=== PATIENT | female | born 1985 | race Two or more races ===

== ENCOUNTER 2020-09-02 12:30 | Outpatient (REF) | payer OTHER, SELFPAY ==
[2020-09-02 14:17] LABS: SARS COV2 PCR INHOUSE NEGATIVE (Negative)
== END 2020-09-02 12:31 | disposition home or self-care (01) ==
LOC: HO.LAB 12:30
PROVIDERS: PCP Internal Medicine; Visit Provider Internal Medicine
DX: Z20.822 Contact with and (suspected) exposure to COVID-19 (principal)
CPT/HCPCS: C9803; U0003

== ENCOUNTER 2020-09-18 14:28 | Outpatient (REF) | payer OTHER, SELFPAY | END 2020-09-18 14:29 | disposition home or self-care (01) | LOC: HO.LAB 14:28 | PROVIDERS: Visit Provider Internal Medicine | DX: Z20.822 Contact with and (suspected) exposure to COVID-19 (principal) | CPT/HCPCS: C9803; U0003; U0005 ==

== ENCOUNTER 2023-01-17 17:19 | Outpatient (AMB) | payer OTHER, SELFPAY ==
--- NOTE | 2023-01-17 17:21 | MHC.PC.OV ---
Vital Signs 01/17/23 17:23 Height 5 ft 5 in Weight 263 lb BMI 43.8 BP 132/80 Blood Pressure Location Lt brachial Position Sitting Intake Visit Reasons: Annual PE Intake Note: Patient here for a physical exam Ventilation Mechanic Required: No Accompanied by: Child Allergies No Known Allergies Allergy (Verified 01/17/23 17:31) Medication List - Last Reconciled 01/17/23 by Iliana Olivas MD No Known Home Meds Tobacco use date assessed: 01/17/23 Dental Screening Dental Screen Date: 01/17/23 Did you have a dental visit in the last 12 months?: No Did you have a dental problem in the last 6 months where you did not have access to dental care?: No Was dental information given to patient?: Patient has dentist HPI HPI Comments History of Present Illness Details This is a 37-year-old female with morbid obesity that comes for her physical exam. Last Pap smear was about a year ago at [facility]. She is morbidly obese with a BMI of 43.8 and was advised to diet and exercise to reach BMI goal less than 30. Declines weight loss surgery. Complains of occasional headaches. No chest pain or shortness of breath. [facility] Medical History Morbid obesity with BMI of 40.0-44.9, adult Surgical History History of section Family History Mother Diabetes Hypertension Stroke Father No problems noted. Other Family history unknown Social History Housing: Apartment Alcohol intake: never Patient Tobacco Use Status: Never used Tobacco e-Cigarette/Vaping Use: Never Used Second Hand Smoke Exposure: No service: No Current occupational status: unemployed Cognitive needs: No Hearing needs: No Vision needs: No Questionnaire PHQ-9 Over the last 2 weeks, how often have you been bothered by any of the following problems? 1. Little interest or pleasure in doing things: not at all 2. Feeling down, depressed, or hopeless: not at all 3. Trouble falling or staying asleep, or sleeping too much: not at all 4. Feeling tired or having little energy: not at all 5. Poor appetite or overeating: not at all 6. Feeling bad about yourself - or that you are a failure or have let yourself or your family down: not at all 7. Trouble concentrating on things, such as reading the newspaper or watching television: not at all 8. Moving or speaking so slowly that other people could have noticed. Or the opposite - being so fidgety or restless that you have been moving around a lot more than usual: not at all 9. Thoughts that you would be better off or of hurting yourself in some way: not at all Total score: 0 Depression Screening Interpretation: Negative 53007 - PHQ-9 Billing: Yes Source: Developed by Drs. Redd Pandya, Berna Red, Campos Gomez and colleagues, with an educational sheyla from [employer]. Thrive Questionnaire Date Thrive assessed: 01/17/23 I am a: Patient What is your living situation today?: I have a steady place to live Within the past 12 months, did the food you bought not last and you didn't have the money to get more?: Never true Within the past 12 months, did you worry whether your food would run out before you got money to buy more?: Never true Do you have trouble paying for medicines?: No Do you have trouble getting transportation to medical appointments?: No Do you have trouble paying your heating and electricity bill?: No Do you have trouble taking care of your child, family member or friend?: No Do you have trouble with day-to-day activities such as bathing, preparing meals, shopping, managing finances, etc.?: No Are you currently unemployed and looking for a job?: No Are you interested in more education?: No Please select the resources that you would like help with: None Currently or been in a relationship where the following occur: no concerns reported AUDIT C Alcohol Use Questionnaire (AUDIT-C) 1. How often do you have a drink containing alcohol?: Never Total Score: 0 ОЛЬГА-7 AMB Questionnaire ОЛЬГА-7 Date ОЛЬГА - 7 assessed: 01/17/23 Feeling nervous, anxious, or on edge: 0 = Not at all Not being able to stop or control worryin = Not at all Worrying too much about different things: 0 = Not at all Trouble relaxin = Not at all Being so restless that it is hard to sit still: 0 = Not at all Becoming easily annoyed or irritable: 0 = Not at all Feeling afraid as if something awful might happen: 0 = Not at all Total ОЛЬГА-7 score (0-4 normal; 5-9 mild; 10-14 moderate; 15-21 severe): 0 Source: Developed by Drs. Redd Pandya, Berna Red, Campos Gomez and colleagues, with an educational sheyla from [employer]. ОЛЬГА-7 Assessment Billing ОЛЬГА-7 Assessment Tool: ОЛЬГА-7 Assessment 39218 Review of Systems Const All systems reviewed & are unremarkable except as noted in HPI and below Eyes Reports no additional complaints, Denies change in vision and Denies other visual disturbances Card Denies chest pain at rest, Denies chest pain with activity, Denies edema, Denies irregular heart rhythm, Denies claudication, Denies dyspnea, Denies dyspnea on exertion, Denies orthopnea, Denies paroxysmal nocturnal dyspnea and Denies slow heart rate Resp Denies cough, Denies dyspnea and Denies dyspnea on exertion GI Denies abdominal pain, Denies change in bowel habits, Denies excessive flatus, Denies nausea and Denies vomiting Denies urinary incontinence, Denies urinary hesitancy and Denies urinary urgency Musc Denies abnormal gait, Denies atrophy, Denies deformity and Denies limited range of motion Skin/Breast Denies bleeding lesions, Denies changing lesions and Denies rash Neuro Denies abnormal gait and Denies lack of coordination Physical exam (Primary Care) BMI result Body Mass Index 43.8 Tobacco/Smoking Status: Tobacco use Status Tobacco use date assessed 11/17/20 01/17/23 17:24 Patient Tobacco Use Status Never used Tobacco 01/17/23 17:24 e-Cigarette/Vaping Use Never Used 01/17/23 17:24 PHQ-9: PHQ-9 Score PHQ-9: Total score 0 01/17/23 17:24 Depression Screening Interpretation: Negative Thrive Assessment: Date of Thrive Assessment Date Thrive assessed 01/17/23 01/17/23 17:24 Currently or been in a relationship where the following occur: no concerns reported Const Orientation/consciousness: patient oriented x3 HENMT Head: Yes normal to inspection, Yes normocephalic and Yes atraumatic Ears: external ears normal Eyes General: appearance normal, both eyes and all related structures Eyelids: Yes eyelids normal Conjunctivae: conjunctivae normal Neck Neck: Yes normal visual inspection and Yes supple Resp Effort & Inspection: normal respiratory effort Auscultation: clear to auscultation bilaterally Cardio Jugular venous distension: no JVD Rate: regular rate Rhythm: regular rhythm Heart sounds: S1 normal heart sound present and S2 normal heart sound present GI Inspection: Yes normal to inspection Palpation (GI): Soft to palpation and nontender Auscultation: normal bowel sounds Skin General skin exam: no rashes or lesions noted Neuro General: patient oriented x3 and no focal motor deficits Extrem General: Yes full ROM Psych Appearance: grossly normal Assessment and Plan Assessment & Plan (1) Encounter for physical examination: Code(s): Z00.00 - Encounter for general adult medical examination without abnormal findings Plan: Repeat in a year (2) Morbid obesity with BMI of 40.0-44.9, adult: Code(s): E66.01 - Morbid (severe) obesity due to excess calories; Z68.41 - Body mass index [BMI] 40.0-44.9, adult Plan: Start diet and exercise. BMI goal is less than 30. Coding Level of Care Code Est Pt Prev Care 18-39y(72040) Diagnoses Encounter for physical examination Z00.00 Morbid obesity with BMI of 40.0-44.9, adult E66.01; Z68.41 Additional Codes ОЛЬГА-7 Assessment Billing - ОЛЬГА-7 Assessment Tool: ОЛЬГА-7 Assessment [id number] ([id number]) Time Spent (min) 32
[2023-01-17 17:23] VITALS: BP 132/80; BMI 43.8
== END 2023-01-17 17:41 | disposition home or self-care (01) ==
PROVIDERS: PCP Internal Medicine; Visit Provider Internal Medicine
DX: Z00.00 Encounter for general adult medical examination without abnormal findings (principal); E66.01 Morbid (severe) obesity due to excess calories; Z68.41 Body mass index [BMI] 40.0-44.9, adult
CPT/HCPCS: 99395

== ENCOUNTER 2024-01-23 16:01 | Outpatient (AMB) | payer OTHER, SELFPAY ==
[2024-01-23 16:01] VITALS: BP 118/78; PULSE 81; O2SAT 98; BMI 42.3
--- NOTE | 2024-01-23 16:01 | A.OFFPC_ITS ---
Vital Signs 01/23/24 16:01 Height 5 ft 5 in Weight 254 lb 4 oz BMI 42.3 BP 118/78 Blood Pressure Location Lt brachial Position Sitting Pulse 81 Pulse Source Pulse Oximeter Pulse Oximetry (%) 98 Oxygen Delivery Method Room Air Intake Visit Reasons: pe Instructional Resource Teacher Required: No Accompanied by: Self / Same As Patient Allergies No Known Allergies Allergy (Verified 01/23/24 16:17) Medication List - Last Reconciled 01/23/24 by Iliana Olivas MD sumatriptan succinate 25 mg PO Q2-4H PRN 30 days Tobacco use date assessed: 01/23/24 Dental Screening Dental Screen Date: 01/23/24 Did you have a dental visit in the last 12 months?: No Did you have a dental problem in the last 6 months where you did not have access to dental care?: No Was dental information given to patient?: Patient has dentist HPI HPI Comments History of Present Illness Details This is a 38-year-old female that comes for her physical exam. Last Pap smear was about 2 years ago at [facility] and as per patient was normal. No chest pain or shortness on breath. She is morbidly obese and was advised to do diet and exercise. Will start Wegovy if insurance approves. [facility] Medical History Morbid obesity with BMI of 40.0-44.9, adult Surgical History History of section Family History (Updated 01/23/24 @ 16:21 by Iliana Olivas MD) Mother Diabetes Hypertension Stroke Father Dementia Schizophrenia Parkinson disease Other Family history unknown Social History Housing: Apartment Alcohol intake: never Patient Tobacco Use Status: Never used Tobacco e-Cigarette/Vaping Use: Never Used Second Hand Smoke Exposure: No service: No Current occupational status: unemployed Cognitive needs: No Hearing needs: No Vision needs: No Questionnaire PHQ-9 Over the last 2 weeks, how often have you been bothered by any of the following problems? 1. Little interest or pleasure in doing things: not at all 2. Feeling down, depressed, or hopeless: not at all 3. Trouble falling or staying asleep, or sleeping too much: not at all 4. Feeling tired or having little energy: not at all 5. Poor appetite or overeating: not at all 6. Feeling bad about yourself - or that you are a failure or have let yourself or your family down: not at all 7. Trouble concentrating on things, such as reading the newspaper or watching television: not at all 8. Moving or speaking so slowly that other people could have noticed. Or the opposite - being so fidgety or restless that you have been moving around a lot more than usual: not at all 9. Thoughts that you would be better off or of hurting yourself in some way: not at all Total score: 0 Depression Screening Interpretation: Negative Depression Screening Done: Yes 83323 - PHQ-9 Billing: Yes Source: Developed by Drs. Redd Pandya, Berna Red, Campos Gomez and colleagues, with an educational sheyla from [employer]. Thrive Questionnaire Date Thrive assessed: 01/23/24 I am a: Patient What is your living situation today?: I have a steady place to live Within the past 12 months, did the food you bought not last and you didn't have the money to get more?: Never true Within the past 12 months, did you worry whether your food would run out before you got money to buy more?: Never true Do you have trouble paying for medicines?: No Do you have trouble getting transportation to medical appointments?: No Do you have trouble paying your heating and electricity bill?: No Do you have trouble taking care of your child, family member or friend?: No Do you have trouble with day-to-day activities such as bathing, preparing meals, shopping, managing finances, etc.?: No Are you currently unemployed and looking for a job?: No Are you interested in more education?: No Please select the resources that you would like help with: None Currently or been in a relationship where the following occur: No concerns reported THRIVE Score: 0 AUDIT C Alcohol Use Questionnaire (AUDIT-C) 1. How often do you have a drink containing alcohol?: Never Total Score: 0 Score Reviewed/Action Taken: No ОЛЬГА-7 AMB Questionnaire ОЛЬГА-7 Date ОЛЬГА - 7 assessed: 01/23/24 Feeling nervous, anxious, or on edge: 0 = Not at all Not being able to stop or control worryin = Not at all Worrying too much about different things: 0 = Not at all Trouble relaxin = Not at all Being so restless that it is hard to sit still: 0 = Not at all Becoming easily annoyed or irritable: 0 = Not at all Feeling afraid as if something awful might happen: 0 = Not at all Total ОЛЬГА-7 score (0-4 normal; 5-9 mild; 10-14 moderate; 15-21 severe): 0 Source: Developed by Drs. Redd Pandya, Berna Red, Campos Gomez and colleagues, with an educational sheyla from [employer]. ОЛЬГА-7 Assessment Billing ЛОЬГА-7 Assessment Tool: ОЛЬГА-7 Assessment 23304 Review of Systems Const All systems reviewed & are unremarkable except as noted in HPI and below Card Denies chest pain at rest, Denies chest pain with activity, Denies edema, Denies irregular heart rhythm, Denies claudication, Denies dyspnea, Denies dyspnea on exertion, Denies orthopnea, Denies paroxysmal nocturnal dyspnea and Denies slow heart rate Resp Denies cough, Denies dyspnea and Denies dyspnea on exertion GI Denies abdominal pain, Denies change in bowel habits, Denies excessive flatus, Denies nausea and Denies vomiting Denies urinary incontinence, Denies urinary hesitancy and Denies urinary urgency Physical exam (Primary Care) Vital Signs: Last Vital Signs Pulse 81 01/23/24 16:01 BP 118/78 01/23/24 16:01 Pulse Ox 98 01/23/24 16:01 Oxygen Delivery Method Room Air 01/23/24 16:01 BMI result Body Mass Index 42.3 BMI Assessment/Plan discussion: High BMI High, discussed plan: lifestyle, weight reduction, dietary and physical activity Tobacco/Smoking Status: Tobacco use Status Tobacco use date assessed 01/23/24 01/23/24 16:03 Patient Tobacco Use Status Never used Tobacco 01/23/24 16:03 e-Cigarette/Vaping Use Never Used 01/23/24 16:03 PHQ-9: PHQ-9 Score PHQ-9: Total score 0 01/23/24 16:18 Depression Screening Interpretation: Negative Thrive Assessment: Date of Thrive Assessment Date Thrive assessed 01/23/24 01/23/24 16:03 Currently or been in a relationship where the following occur: No concerns reported HENMT Head: Yes normal to inspection, Yes normocephalic and Yes atraumatic Ears: external ears normal Eyes General: appearance normal, both eyes and all related structures Eyelids: Yes eyelids normal Conjunctivae: conjunctivae normal Neck Neck: Yes normal visual inspection and Yes supple Resp Effort & Inspection: normal respiratory effort Auscultation: clear to auscultation bilaterally Cardio Jugular venous distension: no JVD Rate: regular rate Rhythm: regular rhythm Heart sounds: S1 normal heart sound present and S2 normal heart sound present GI Inspection: Yes normal to inspection Palpation (GI): Soft to palpation and nontender Auscultation: normal bowel sounds Skin General skin exam: no rashes or lesions noted Neuro General: no focal motor deficits Extrem General: Yes full ROM Psych Appearance: grossly normal Assessment and Plan Assessment & Plan (1) Encounter for physical examination: Code(s): Z00.00 - Encounter for general adult medical examination without abnormal findings Plan: Repeat in a year. (2) Morbid obesity with BMI of 40.0-44.9, adult: Code(s): E66.01 - Morbid (severe) obesity due to excess calories; Z68.41 - Body mass index [BMI] 40.0-44.9, adult Plan: Start diet and exercise. BMI goal is less than 30. Orders: Orders Comprehensive [place]. Panel Fast Today Z00.00 - Encounter for general adult medical examination without abnormal findings Lipid Panel Today Z00.00 - Encounter for general adult medical examination without abnormal findings Medications: New semaglutide (weight loss) (Wegovy) administer weeks 1 through 4 of therapy 0.25 mg (0.5 mL) subcut QWEEK 4 weeks 2 mL 0RF E66.01 - Morbid (severe) obesity due to excess calories, Z68.41 - Body mass index [BMI] 40.0-44.9, adult Coding Level of Care Code Est Pt Prev Care 18-39y(91053) Diagnoses Encounter for physical examination Z00.00 Morbid obesity with BMI of 40.0-44.9, adult E66.01; Z68.41 Additional Codes ОЛЬГА-7 Assessment Billing - ОЛЬГА-7 Assessment Tool: ОЛЬГА-7 Assessment 49339 ([id number]) Time Spent (min) 30
== END 2024-01-23 16:26 | disposition home or self-care (01) ==
PROVIDERS: PCP Internal Medicine; Visit Provider Internal Medicine
DX: Z00.00 Encounter for general adult medical examination without abnormal findings (principal); E66.01 Morbid (severe) obesity due to excess calories; Z68.41 Body mass index [BMI] 40.0-44.9, adult
CPT/HCPCS: 99395

== ENCOUNTER 2024-01-24 12:02 | Outpatient (REF) | payer OTHER, SELFPAY ==
[2024-01-24 13:03] LABS: Alanine Aminotransferase 11 U/L (0-31); Albumin Level 3.8 g/dL (3.5-5.0); Alkaline Phosphatase 64 U/L (39-117); Anion Gap 11 (12-20); Aspartate Amino Transferase 11 U/L (5-31); Bilirubin Total 0.6 mg/dL (0.0-1.0); Blood Urea Nitrogen 11 mg/dL (9-16); Calcium 9.2 mg/dL (8.4-10.2); Carbon Dioxide 24 mmol/L (22-29); Chloride 108 mmol/L (96-108); Cholesterol 137 mg/dL (<200); Estimated Glomerular Filt Rate > 60; Glucose Fasting 95 mg/dL (60-99); HDL Cholesterol 37 mg/dL (>40); LDL Cholesterol Calculated 77 mg/dL (<100); Potassium 3.8 mmol/L (3.3-5.1); Sodium 139 mmol/L (135-145); Total Protein 7.6 g/dL (6.5-8.0); Triglycerides 117 mg/dL (<150)
== END 2024-01-24 12:03 | disposition home or self-care (01) ==
LOC: HO.LAB 12:02
PROVIDERS: PCP Internal Medicine; Visit Provider Internal Medicine
DX: Z00.00 Encounter for general adult medical examination without abnormal findings (principal)
CPT/HCPCS: 36415; 80053; 80061